=== PATIENT | female | born 1980 | race Caucasian/White ===

== ENCOUNTER 2017-08-21 15:14 | Emergency (ER) | payer SELFPAY ==
[~2017-08-21] VITALS: Ht 167.6 cm; Wt 61.4 kg
[2017-08-21 15:15] VITALS: BP 106/68; PULSE 78; RESP 18; TEMP 98.5; O2SAT 98
--- NOTE | 2017-08-27 22:25 | PD ---
HPI Chief Complaint: Cold / Flu Symptoms Time Seen by Provider: 15:33 Travel History International Travel<30 days: No Contact w/Intl Traveler<30days: No Traveled to known affect area: No History of Present Illness HPI 37-year-old female presents to the emergency department for evaluation of cough and chest congestion 1 week. Patient has also had a sinus headache and congestion. She reports pnkw-jsh-ahfohtl medications are not working. She has had no fever or chills. No chest pain. No nausea, vomiting, diarrhea. She has no other symptoms to report. [facility] Past Medical History Medical History: Denies Significant Hx Social History Alcohol Use: No Tobacco Use: No Substance Use: No Review of Systems Except as stated in HPI: all other systems reviewed are Neg Physical Exam Narrative GENERAL: Well-nourished, well-developed patient in no acute distress. SKIN: Focused skin assessment warm/dry. HEAD: Normocephalic. EYES: No scleral icterus. No injection or drainage. NECK: Trachea midline. CARDIOVASCULAR: Regular rate RESPIRATORY:No accessory muscle use. GASTROINTESTINAL: Abdomen nondistended. MUSCULOSKELETAL: No cyanosis, or edema. BACK: without obvious deformity MDM Medical Decision Making Medical Screen Exam Complete: Yes Emergency Medical Condition: Yes Medical Record Reviewed: Yes Differential Diagnosis Common cold versus influenza versus sinusitis versus pneumonia Narrative Course 37-year-old female presents to the emergency department for evaluation of cough and chest congestion. Patient appears nontoxic. Vital signs are stable. Once a bed becomes available, patient will be transferring care assumed by the provider. AMA: The risks of leaving against medical advice without further evaluation treatment were discussed with the patient. These risks include cardiac dysfunction, cardiac dysrhythmia, possible heart attack, possible stroke or . The patient indicated understanding of these risks and appeared to have the capacity to make this decision. Diagnosis Primary Impression: Upper respiratory infection Qualified Codes: J06.9 - Acute upper respiratory infection, unspecified Disposition: 07 AGAINST MEDICAL ADVICE Condition: Stable SinclairBerna garner ROSALVA Aug 27, 2017 22:25
== END 2017-08-21 18:49 | disposition left against medical advice (07) ==
LOC: NETRI 15:14
DX: J06.9 Acute upper respiratory infection, unspecified (principal); Z53.21 Procedure and treatment not carried out due to patient leaving prior to being seen by health care provider
CPT/HCPCS: 99281

== ENCOUNTER 2017-10-30 09:20 | Emergency (ER) | payer SELFPAY ==
[~2017-10-30] VITALS: Ht 167.6 cm; Wt 61.5 kg
[2017-10-30 09:21] VITALS: BP 116/57; PULSE 68; RESP 16; TEMP 98.6; O2SAT 99
[2017-10-30] MEDS ORDERED: CELE10TA PO (09:45)
[2017-10-30] MEDS ORDERED: CIPR-9 PO (09:45)
[2017-10-30] MEDS ORDERED: AUGM875T3 PO (09:59)
[2017-10-30] MEDS ORDERED: MEDR4PAK PO (09:59)
[2017-10-30] MEDS ORDERED: MAGICADU2 SWISH-SWAL (09:59)
--- NOTE | 2017-10-30 10:05 | PD ---
HPI Chief Complaint: Oral / Dental Pain or Problem Time Seen by Provider: 09:44 Travel History International Travel<30 days: No Contact w/Intl Traveler<30days: No Traveled to known affect area: No History of Present Illness HPI 37-year-old female that presents to the ED for evaluation of right-sided facial pain and swelling. Per patient about 2 weeks ago she noted that she had inflamed tonsils with exudates. She was evaluated by one of her physicians as well as physician commercial assistant in her office and they started her on amoxicillin to cover for strep throat. She was able to take the medication with no issues and she was able to get better on her own. Since yesterday she started developing same symptoms except that now she is having pain on the right neck as well as the right ear. Per patient she finished antibiotics with no issues. Per patient she is concerned she may be having the same. Per patient her doctor at her office prescribed her Cipro in hopes that this will help cover for any other bacteria. Patient has had no cultures or evaluations alert by her boss who is a hypertrichologist. Patient states the pain is 4 out of 10 and gets worse with movement. Denies any cough. No runny nose. Patient denies any other medical history. Allergy to promethazine. Has not seen her own provider. PFSH Past Medical History Deep Vein Thrombosis: Yes (LLE) ?: Not LMP: 2 WEEKS AGO Social History Alcohol Use: No Tobacco Use: Yes (BUT NONE X 3 DAYS) Substance Use: Yes (MARIJUANA) Allergies-Medications (Allergen,Severity, Reaction): Coded Allergies: promethazine (Verified Allergy, Unknown, 10/30/17) Reported Meds & Prescriptions Reported Meds & Active Scripts Active Augmentin (Amoxicillin-Clavulanate) 875-125 Mg Tab 1 Tab PO BID 10 Days Magic Mouthwash Adult Liq (Multi-Ingredient Mouthwash/Gargle) 120 Ml Susp 5 Ml SWISH-SWAL ACHS Each 5mL contains: Nystatin 200,000units, Diphenhydramine 4.25mg, Viscous Lidocaine 10mg, [place] syrup 0.8 mL Medrol Dosepak (Methylprednisolone) 4 Mg Dspk 4 Mg PO DIRECTED Per Pharmacist direction Reported Celexa (Citalopram Hydrobromide) 10 Mg Tab Unknown Dose PO DAILY Cipro (Ciprofloxacin HCl) 500 Mg Tab 500 Mg PO BID Review of Systems Except as stated in HPI: all other systems reviewed are Neg Physical Exam Narrative GENERAL: Well-nourished, well-developed patient in no apparent distress. SKIN: Warm and dry. HEAD: Atraumatic. Normocephalic. EYES: Pupils equal and round reactive to light and accommodation. No scleral icterus. No injection or drainage. ENT: No nasal bleeding or discharge. Mucous membranes pink and moist. TMs are clear with no sign of infection or perforation but the right TM does appear to be bulging somewhat.. No mastoid tenderness. Ear canals are intact bilaterally. Right cervical lymphadenopathy. Nostril mucosa is red and moist with clear mucus noted. No sinus tenderness to palpation noted. Tonsils slightly enlarged on the right side but not touching. Patient does have some white exudates noted on the left tonsil. Not erythematous however. No ulvua Deviation. Tongue is midline. NECK: Trachea midline. No JVD. No meningeal signs noted CARDIOVASCULAR: Regular rate and rhythm. RESPIRATORY: No accessory muscle use. Clear to auscultation. Breath sounds equal bilaterally. GASTROINTESTINAL: Abdomen soft, non-tender, nondistended. Hepatic and splenic margins not palpable. MUSCULOSKELETAL: Extremities without clubbing, cyanosis, or edema. No obvious deformities. NEUROLOGICAL: Awake and alert. No obvious cranial nerve deficits. Motor grossly within normal limits. Five out of 5 muscle strength in the arms and legs. Normal speech. PSYCHIATRIC: Appropriate mood and affect; insight and judgment normal. Data Data Last Documented VS Vital Signs Date Time Temp Pulse Resp B/P (MAP) Pulse Ox O2 Delivery O2 Flow Rate FiO2 10/30/17 09:21 98.6 68 16 116/57 (76) 99 Room Air Orders Orders Throat Culture (10/30/17 09:52) [facility] Medical Decision Making Medical Screen Exam Complete: Yes Emergency Medical Condition: Yes Medical Record Reviewed: Yes Differential Diagnosis Strep throat versus pharyngitis versus otitis media Narrative Course 37-year-old female that presents to the ED for evaluation of sore throat. Patient was properly examined and was found to have signs and symptoms consistent appears to be pharyngitis. Possible early otitis media. I recommend discontinuing the Cipro as per patient is making her feel worse. I do recommend adding Augmentin instead that should cover for anything that the amoxicillin did not cover. I did perform a throat culture to see what its growing on her throat to better assess what is going on with her. Her right neck pain does appear to be related to lymphadenopathy likely from infection. I discharged from the recommend that she follows up with primary care doctor. ENT. See ED worsening symptoms. OTC medicines as needed. She will be given a prescription for Medrol Dosepak as well as magic mouthwash for symptoms. Diagnosis Primary Impression: Pharyngitis, acute Qualified Codes: J02.9 - Acute pharyngitis, unspecified Additional Impression: Lymphadenitis, acute Patient Instructions: General Instructions Additional Instructions: Motrin and Tylenol for pain and fever. You can use rikc-[id number]-[id number] antihistamine as well as well as Mucinex as needed for runny nose and congestion. Drink plenty of fluids. Follow-up with PCP. See ED for worsening symptoms. Med/Other Pt SpecificInfo: Prescription(s) given Scripts Amoxicillin-Clavulanate (Augmentin) 875-125 Mg Tab 1 TAB PO BID for Infection for 10 Days, #20 TAB 0 Refills Prov: Jerardo Santoro MD 10/30/17 Zgqzyfxu-Svdfkavwukfawrg-Qafbfqpjb Liq (Magic Mouthwash Adult Liq) 120 Ml Susp 5 ML SWISH-SWAL ACHS for Mouth sores, #120 ML 0 Refills Each 5mL contains: Nystatin 200,000units, Diphenhydramine 4.25mg, Viscous Lidocaine 10mg, [place] syrup 0.8 mL Prov: Jerardo Santoro MD 10/30/17 Methylprednisolone Dosepak (Medrol Dosepak) 4 Mg Dspk 4 MG PO DIRECTED, #1 DSPK 0 Refills Per Pharmacist direction Prov: Jerardo Santoro MD 10/30/17 Disposition: 01 DISCHARGE HOME Condition: Stable Yuri Hull Oct 30, 2017 10:05
== END 2017-10-30 10:38 | disposition home or self-care (01) ==
LOC: NEPK 09:20
DX: J02.9 Acute pharyngitis, unspecified (principal); L04.9 Acute lymphadenitis, unspecified; Z86.718 Personal history of other venous thrombosis and embolism; Z72.0 Tobacco use
CPT/HCPCS: 87070; 99283

== ENCOUNTER 2017-12-27 14:13 | Emergency (ER) | payer SELFPAY ==
[~2017-12-27] VITALS: Ht 167.6 cm; Wt 60.0 kg
[~2017-12-27 14:13] MED LIST: AUGM875T3 PO; CELE10TA PO; CIPR-9 PO; MAGICADU2 SWISH-SWAL; MEDR4PAK PO
[2017-12-27 14:25] VITALS: BP 134/83; PULSE 103; RESP 18; TEMP 98.3; O2SAT 98
[2017-12-27] MEDS ORDERED: SODIUM CHLORIDE 0.9% FLUSH 10 ML FLUSH IV FLUSH PRN (16:00)
[2017-12-27] MEDS ORDERED: KETOROLAC TROMETHAMINE 30 MG/ML (IVP) VIAL IVP ONE (16:00)
[2017-12-27 16:36] LABS: AUTOMATED NEUTROPHIL # 4.8 TH/MM3 (1.8-7.7); BASOPHIL # 0.1 TH/MM3 (0-0.2); BASOPHIL % 0.8 % (0.0-2.0); EOSINOPHIL # 0.2 TH/MM3 (0-0.4); HEMATOCRIT 36.7 % (35.0-46.0); HEMOGLOBIN 12.3 GM/DL (11.6-15.3); LYMPH % 32.6 % (9.0-44.0); LYMPHOCYTE # 2.8 TH/MM3 (1.0-4.8); MEAN CELL VOLUME 90.5 FL (80.0-100.0); MEAN CORPUSCULAR HEMOGLOBIN 30.5 PG (27.0-34.0); MEAN CORPUSCULAR HGB CONC 33.7 % (32.0-36.0); MONO % 8.5 % (0.0-8.0); MONOCYTE # 0.7 TH/MM3 (0-0.9); NEUT % 56.1 % (16.0-70.0); PLATELET COUNT 247 TH/MM3 (150-450); RED BLOOD COUNT 4.05 MIL/MM3 (4.00-5.30); RED CELL DISTRIBUTION WIDTH 14.6 % (11.6-17.2); WHITE BLOOD COUNT 8.6 TH/MM3 (4.0-11.0)
[2017-12-27 16:46] LABS: BILIRUBIN, URINE NEG (NEG); BLOOD, URINE NEG (NEG); GLUCOSE,URINE NEG (NEG); KETONE, URINE NEG (NEG); MUCUS URINE FEW /lpf (OCC); NITRITE,URINE NEG (NEG); PH, URINE 6.5 (5.0-8.5); SQUAMOUS EPITHELIAL CELL URINE 12 /hpf (0-5); URINE COLOR YELLOW (YELLW/STRAW); URINE LEUKOCYTE ESTERASE NEG (NEG)
[2017-12-27 16:47] LABS: PROTHROMBIN TIME - PATIENT 10.2 SEC (9.8-11.6)
--- NOTE | 2017-12-27 17:04 | PD ---
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 Reports nausea without vomiting. Denies fevers. Denies abnormal vaginal discharge or odor, but does state she has had more discharge than normal. Is concerned of exposure to STI. Denies vaginal bleeding, dysuria. History of left ovary removal and 2 C-sections, otherwise no other abdominal surgeries. Last menstrual period 2-1/2 weeks ago. History of tubal ligation. History of ovarian cyst and believes on the right side, since she does not have a left ovary. Rates pain 7/10. Worse with movement. Better at rest. Has tried taking ibuprofen for symptom management with no relief. No primary care provider. No fabric designer. Allergies to Phenergan. History of ovarian cyst, DVT in her left leg, and depression. Denies anticoagulant therapy. Has no other medical complaints. No other modifying factors or associated signs and symptoms. PFSH Past Medical History Deep Vein Thrombosis: Yes (LLE) Medical other: Yes (OVARIAN CYSTS) ?: Not LMP: 12/05/17 Past Surgical History Surgical History: No Previous Surgery Social History Alcohol Use: No Tobacco Use: No Substance Use: Yes (MARIJUANA) Allergies-Medications (Allergen,Severity, Reaction): Coded Allergies: promethazine (Verified Allergy, Unknown, 10/30/17) Reported Meds & Prescriptions Reported Meds & Active Scripts Active Prednisone 50 Mg Tab 50 Mg PO DAILY 3 Days Ibuprofen 800 Mg Tab 800 Mg PO Q6HR PRN Augmentin (Amoxicillin-Clavulanate) 875-125 Mg Tab 1 Tab PO BID 10 Days Magic Mouthwash Adult Liq (Multi-Ingredient Mouthwash/Gargle) 120 Ml Susp 5 Ml SWISH-SWAL ACHS Each 5mL contains: Nystatin 200,000units, Diphenhydramine 4.25mg, Viscous Lidocaine 10mg, [place] syrup 0.8 mL Medrol Dosepak (Methylprednisolone) 4 Mg Dspk 4 Mg PO DIRECTED Per Pharmacist direction Reported Celexa (Citalopram Hydrobromide) 10 Mg Tab Unknown Dose PO DAILY Cipro (Ciprofloxacin HCl) 500 Mg Tab 500 Mg PO BID Review of Systems Except as stated in HPI: all other systems reviewed are Neg Physical Exam Narrative GENERAL: Well-nourished, well-developed female patient, in no acute distress; afebrile, nontoxic-appearing SKIN: Warm and dry. HEAD: Atraumatic. Normocephalic. EYES: Pupils equal and round. No scleral icterus. No injection or drainage. ENT: Mucous membranes pink and moist. NECK: Trachea midline. No lymphadenopathy. CARDIOVASCULAR: Regular rate and rhythm. No murmur appreciated. RESPIRATORY: No accessory muscle use. Clear to auscultation. Breath sounds equal bilaterally. GASTROINTESTINAL: Abdomen soft, right lower quadrant abdominal pain, nondistended. Bilateral pelvic region nontender to palpation. Hepatic and splenic margins not palpable. No guarding, rigidity, rebound tenderness. PELVIC: Exam done in the presence of a nurse. Speculum exam reveals edematous and erythematous cervix with copioius amount of creamy white, nonodorous discharge. Bimanual exam reveals no palpable masses or adnexa tenderness, no uterine tenderness. [-] cervical motion tenderness. BACK: Right CVA tenderness. MUSCULOSKELETAL: No obvious deformities. No clubbing. No cyanosis. No edema. NEUROLOGICAL: Awake and alert. No obvious cranial nerve deficits. Motor grossly within normal limits. Normal speech. PSYCHIATRIC: Appropriate mood and affect; insight and judgment normal. Data Data Last Documented VS Vital Signs Date Time Temp Pulse Resp B/P (MAP) Pulse Ox O2 Delivery O2 Flow Rate FiO2 12/27/17 19:21 72 16 119/72 (88) 98 Room Air 12/27/17 14:25 98.3 Orders Orders Complete Blood Count With Diff (12/27/17 15:58) Comprehensive Metabolic Panel (12/27/17 15:58) Lipase (12/27/17 15:58) Prothrombin Time / Inr (Pt) (12/27/17 15:58) Act Partial Throm Time (Ptt) (12/27/17 15:58) Urinalysis - C+S If Indicated (12/27/17 15:58) Iv Access Insert/Monitor (12/27/17 15:58) Sodium Chloride 0.9% Flush (Ns Flush) (12/27/17 16:00) Ketorolac Inj (Toradol Inj) (12/27/17 16:00) Ed Urine Pregnancytest Poc (12/27/17 15:58) Gc And Chlamydia Pcr (12/27/17 16:21) Wet Prep Profile (12/27/17 16:21) Ct Abd/Pel W Iv Contrast(Rout) (12/27/17 ) Sodium Chlor 0.9% 1000 Ml Inj (Ns 1000 M (12/27/17 17:15) Morphine Inj (Morphine Inj) (12/27/17 19:15) Ondansetron Inj (Zofran Inj) (12/27/17 19:15) Methylprednisolone So Succ Inj (Solumedr (12/27/17 19:30) Diphenhydramine Inj (Benadryl Inj) (12/27/17 19:30) Iohexol 350 Inj (Omnipaque 350 Inj) (12/27/17 19:33) Beta Hcg (Quant/Titer) (12/27/17 19:54) Ed Discharge Order (12/27/17 21:05) Labs Laboratory Tests Test 12/27/17 16:06 12/27/17 17:14 White Blood Count 8.6 TH/MM3 Red Blood Count 4.05 MIL/MM3 Hemoglobin 12.3 GM/DL Hematocrit 36.7 % Mean Corpuscular Volume 90.5 FL Mean Corpuscular Hemoglobin 30.5 PG Mean Corpuscular Hemoglobin Concent 33.7 % Red Cell Distribution Width 14.6 % Platelet Count 247 TH/MM3 Mean Platelet Volume 9.0 FL Neutrophils (%) (Auto) 56.1 % Lymphocytes (%) (Auto) 32.6 % Monocytes (%) (Auto) 8.5 % Eosinophils (%) (Auto) 2.0 % Basophils (%) (Auto) 0.8 % Neutrophils # (Auto) 4.8 TH/MM3 Lymphocytes # (Auto) 2.8 TH/MM3 Monocytes # (Auto) 0.7 TH/MM3 Eosinophils # (Auto) 0.2 TH/MM3 Basophils # (Auto) 0.1 TH/MM3 CBC Comment DIFF FINAL Differential Comment Prothrombin Time 10.2 SEC Prothromb Time International Ratio 1.0 RATIO Activated Partial Thromboplast Time 31.0 SEC Urine Color YELLOW Urine Turbidity HAZY Urine pH 6.5 Urine Specific [place] 1.037 Urine Protein 30 mg/dL Urine Glucose (UA) NEG mg/dL Urine Ketones NEG mg/dL Urine Occult Blood NEG Urine Nitrite NEG Urine Bilirubin NEG Urine Urobilinogen LESS THAN 2.0 MG/DL Urine Leukocyte Esterase NEG Urine WBC 3 /hpf Urine Squamous Epithelial Cells 12 /hpf Urine Mucus FEW /lpf Microscopic Urinalysis Comment CULT NOT INDICATED Blood Urea Nitrogen 9 MG/DL Creatinine 0.66 MG/DL Random Glucose 79 MG/DL Total Protein 7.2 GM/DL Albumin 3.7 GM/DL Calcium Level 8.7 MG/DL Alkaline Phosphatase 39 U/L Aspartate Amino Transf (AST/SGOT) 11 U/L Alanine Aminotransferase (ALT/SGPT) 17 U/L Total Bilirubin 0.1 MG/DL Sodium Level 140 MEQ/L Potassium Level 3.8 MEQ/L Chloride Level 105 MEQ/L Carbon Dioxide Level 27.6 MEQ/L Anion Gap 7 MEQ/L Estimat Glomerular Filtration Rate 101 ML/MIN Lipase 177 U/L Human Chorionic Gonadotropin, Quant LESS THAN 1 MIU/ML Clue Cells (Wet Prep) NONE SEEN Vaginal Trichomonas (Wet Prep) NONE SEEN Vaginal Yeast (Wet Prep) NONE SEEN Chlamydia trachomatis DNA (PCR) NOT DETECTED Neisseria gonorrhoeae DNA (PCR) NOT DETECTED MDM Medical Decision Making Medical Screen Exam Complete: Yes Emergency Medical Condition: Yes Medical Record Reviewed: Yes Differential Diagnosis Appendicitis, PID, chlamydia, gonorrhea, trichomonas Narrative Course 37-year-old female with right lower quadrant abdominal pain and concern of exposure to STI. Reports more vaginal discharge than normal, but denies abnormal color or smell. Dr. schneider evaluated the patient and agrees with my plan of care. CBC, CMP, lipase, urinalysis, UPT, wet prep, chlamydia, gonorrhea , CT abdomen/pelvis ordered. IV, Toradol, normal saline bolus ordered. 1728: CBC, CMP, lipase, urinalysis unremarkable. 1899: Clue cells, vaginal yeast, trichomonas negative. Chlamydia and gonorrhea pending. 1899: Report given to ROSALVA Golden at change of shift. See her note for final patient disposition. Scripts Prednisone (Prednisone) 50 Mg Tab 50 MG PO DAILY for 3 Days, #3 TAB 0 Refills Prov: Dorys Marcelino 12/27/17 Ibuprofen (Ibuprofen) 800 Mg Tab 800 MG PO Q6HR Y for PAIN, #40 TAB 0 Refills Prov: Dorys Marcelino 12/27/17 Romi Camacho Dec 27, 2017 17:04
[2017-12-27 17:05] LABS: ALBUMIN 3.7 GM/DL (3.4-5.0); AST (GOT) 11 U/L (15-37); BICARBONATE 27.6 MEQ/L (21.0-32.0); BLOOD UREA NITROGEN 9 MG/DL (7-18); CALCIUM 8.7 MG/DL (8.5-10.1); CHLORIDE 105 MEQ/L (98-107); CREATININE 0.66 MG/DL (0.50-1.00); GLOMERULAR FILTRATION RATE 101 ML/MIN (>89); GLUCOSE,RANDOM 79 MG/DL (74-106); SODIUM (NA) 140 MEQ/L (136-145)
[2017-12-27 17:14] LABS: ALKALINE PHOSPHATASE 39 U/L (45-117); ALT (GPT) 17 U/L (10-53); TOTAL BILIRUBIN ADULT 0.1 MG/DL (0.2-1.0); TOTAL PROTEIN 7.2 GM/DL (6.4-8.2)
[2017-12-27] MEDS ORDERED: SODIUM CHLOR 0.9% 1000 ML INJ 1,000 ML IV ONE (17:15)
--- NOTE | 2017-12-27 17:22 | PD ---
Data Data Last Documented VS Vital Signs Date Time Temp Pulse Resp B/P (MAP) Pulse Ox O2 Delivery O2 Flow Rate FiO2 12/27/17 14:25 98.3 103 18 134/83 (100) 98 Orders Orders Complete Blood Count With Diff (12/27/17 15:58) Comprehensive Metabolic Panel (12/27/17 15:58) Lipase (12/27/17 15:58) Prothrombin Time / Inr (Pt) (12/27/17 15:58) Act Partial Throm Time (Ptt) (12/27/17 15:58) Urinalysis - C+S If Indicated (12/27/17 15:58) Iv Access Insert/Monitor (12/27/17 15:58) Sodium Chloride 0.9% Flush (Ns Flush) (12/27/17 16:00) Ketorolac Inj (Toradol Inj) (12/27/17 16:00) Ed Urine Pregnancytest Poc (12/27/17 15:58) Gc And Chlamydia Pcr (12/27/17 16:21) Wet Prep Profile (12/27/17 16:21) Ct Abd/Pel W Iv Contrast(Rout) (12/27/17 ) Sodium Chlor 0.9% 1000 Ml Inj (Ns 1000 M (12/27/17 17:15) Labs Laboratory Tests Test 12/27/17 16:06 White Blood Count 8.6 TH/MM3 Red Blood Count 4.05 MIL/MM3 Hemoglobin 12.3 GM/DL Hematocrit 36.7 % Mean Corpuscular Volume 90.5 FL Mean Corpuscular Hemoglobin 30.5 PG Mean Corpuscular Hemoglobin Concent 33.7 % Red Cell Distribution Width 14.6 % Platelet Count 247 TH/MM3 Mean Platelet Volume 9.0 FL Neutrophils (%) (Auto) 56.1 % Lymphocytes (%) (Auto) 32.6 % Monocytes (%) (Auto) 8.5 % Eosinophils (%) (Auto) 2.0 % Basophils (%) (Auto) 0.8 % Neutrophils # (Auto) 4.8 TH/MM3 Lymphocytes # (Auto) 2.8 TH/MM3 Monocytes # (Auto) 0.7 TH/MM3 Eosinophils # (Auto) 0.2 TH/MM3 Basophils # (Auto) 0.1 TH/MM3 CBC Comment DIFF FINAL Differential Comment Prothrombin Time 10.2 SEC Prothromb Time International Ratio 1.0 RATIO Activated Partial Thromboplast Time 31.0 SEC Urine Color YELLOW Urine Turbidity HAZY Urine pH 6.5 Urine Specific [place] 1.037 Urine Protein 30 mg/dL Urine Glucose (UA) NEG mg/dL Urine Ketones NEG mg/dL Urine Occult Blood NEG Urine Nitrite NEG Urine Bilirubin NEG Urine Urobilinogen LESS THAN 2.0 MG/DL Urine Leukocyte Esterase NEG Urine WBC 3 /hpf Urine Squamous Epithelial Cells 12 /hpf Urine Mucus FEW /lpf Microscopic Urinalysis Comment CULT NOT INDICATED Blood Urea Nitrogen 9 MG/DL Creatinine 0.66 MG/DL Random Glucose 79 MG/DL Total Protein 7.2 GM/DL Albumin 3.7 GM/DL Calcium Level 8.7 MG/DL Alkaline Phosphatase 39 U/L Aspartate Amino Transf (AST/SGOT) 11 U/L Alanine Aminotransferase (ALT/SGPT) 17 U/L Total Bilirubin 0.1 MG/DL Sodium Level 140 MEQ/L Potassium Level 3.8 MEQ/L Chloride Level 105 MEQ/L Carbon Dioxide Level 27.6 MEQ/L Anion Gap 7 MEQ/L Estimat Glomerular Filtration Rate 101 ML/MIN Lipase 177 U/L MDM Supervised Visit with JOHNNIE: Yes Narrative Course The history, exam, and medical decision-making in the associated mid-level provider note were completed with my assistance. I reviewed and agree with the findings presented. I attest that I had a [id number] encounter with the patient on the same day, and personally performed and documented my assessment and findings in the medical record. *My assessment and Findings: 37-year-old woman, right lower quadrant abdominal pain, starting yesterday. Some tenderness on exam. Looks well. Symptoms are somewhat consistent with appendicitis. She had vague diffuse abdominal pain, and migrating to the right lower quadrant over 24 hours. Also has a good appetite. I think this is less likely to be appendicitis. She had some cervical motion tenderness. She sexually active one male partner only. This point recommend CT, if negative for appendicitis would treat PID. Jonny Allen MD Dec 27, 2017 17:22
[2017-12-27] MEDS ORDERED: ONDANSETRON HCL 4 MG/2 ML VIAL IV PUSH ONE (19:15)
[2017-12-27] MEDS ORDERED: MORPHINE SULFATE 4 MG/ML INJ IV PUSH ONE (19:15)
[2017-12-27 19:21] VITALS: BP 119/72; PULSE 72; RESP 16; O2SAT 98
[2017-12-27] MEDS ORDERED: diphenhydrAMINE HCL 50 MG/ML VIAL IV PUSH ONE (19:30)
[2017-12-27] MEDS ORDERED: methylPREDNISolone SOD SUCC 125 MG/2 ML VIAL IV PUSH ONE (19:30)
[2017-12-27] MEDS ORDERED: IOHEXOL 350 MG/ML 10 ML VIAL (for RAD DIAG) IVCONTRAST ONE (19:33)
--- NOTE | 2017-12-27 19:45 | PD ---
Physical Exam Date Seen by Provider: Dec 27, 2017 Time Seen by Provider: 19:43 Narrative For full history and physical examination please see previous providers note. I assumed care of this patient change of shift. Data Data Last Documented VS Vital Signs Date Time Temp Pulse Resp B/P (MAP) Pulse Ox O2 Delivery O2 Flow Rate FiO2 12/27/17 19:21 72 16 119/72 (88) 98 Room Air 12/27/17 14:25 98.3 Orders Orders Complete Blood Count With Diff (12/27/17 15:58) Comprehensive Metabolic Panel (12/27/17 15:58) Lipase (12/27/17 15:58) Prothrombin Time / Inr (Pt) (12/27/17 15:58) Act Partial Throm Time (Ptt) (12/27/17 15:58) Urinalysis - C+S If Indicated (12/27/17 15:58) Iv Access Insert/Monitor (12/27/17 15:58) Sodium Chloride 0.9% Flush (Ns Flush) (12/27/17 16:00) Ketorolac Inj (Toradol Inj) (12/27/17 16:00) Ed Urine Pregnancytest Poc (12/27/17 15:58) Gc And Chlamydia Pcr (12/27/17 16:21) Wet Prep Profile (12/27/17 16:21) Ct Abd/Pel W Iv Contrast(Rout) (12/27/17 ) Sodium Chlor 0.9% 1000 Ml Inj (Ns 1000 M (12/27/17 17:15) Morphine Inj (Morphine Inj) (12/27/17 19:15) Ondansetron Inj (Zofran Inj) (12/27/17 19:15) Methylprednisolone So Succ Inj (Solumedr (12/27/17 19:30) Diphenhydramine Inj (Benadryl Inj) (12/27/17 19:30) Iohexol 350 Inj (Omnipaque 350 Inj) (12/27/17 19:33) Beta Hcg (Quant/Titer) (12/27/17 19:54) Ed Discharge Order (12/27/17 21:05) Labs Laboratory Tests Test 12/27/17 16:06 12/27/17 17:14 White Blood Count 8.6 TH/MM3 Red Blood Count 4.05 MIL/MM3 Hemoglobin 12.3 GM/DL Hematocrit 36.7 % Mean Corpuscular Volume 90.5 FL Mean Corpuscular Hemoglobin 30.5 PG Mean Corpuscular Hemoglobin Concent 33.7 % Red Cell Distribution Width 14.6 % Platelet Count 247 TH/MM3 Mean Platelet Volume 9.0 FL Neutrophils (%) (Auto) 56.1 % Lymphocytes (%) (Auto) 32.6 % Monocytes (%) (Auto) 8.5 % Eosinophils (%) (Auto) 2.0 % Basophils (%) (Auto) 0.8 % Neutrophils # (Auto) 4.8 TH/MM3 Lymphocytes # (Auto) 2.8 TH/MM3 Monocytes # (Auto) 0.7 TH/MM3 Eosinophils # (Auto) 0.2 TH/MM3 Basophils # (Auto) 0.1 TH/MM3 CBC Comment DIFF FINAL Differential Comment Prothrombin Time 10.2 SEC Prothromb Time International Ratio 1.0 RATIO Activated Partial Thromboplast Time 31.0 SEC Urine Color YELLOW Urine Turbidity HAZY Urine pH 6.5 Urine Specific Lapel 1.037 Urine Protein 30 mg/dL Urine Glucose (UA) NEG mg/dL Urine Ketones NEG mg/dL Urine Occult Blood NEG Urine Nitrite NEG Urine Bilirubin NEG Urine Urobilinogen LESS THAN 2.0 MG/DL Urine Leukocyte Esterase NEG Urine WBC 3 /hpf Urine Squamous Epithelial Cells 12 /hpf Urine Mucus FEW /lpf Microscopic Urinalysis Comment CULT NOT INDICATED Blood Urea Nitrogen 9 MG/DL Creatinine 0.66 MG/DL Random Glucose 79 MG/DL Total Protein 7.2 GM/DL Albumin 3.7 GM/DL Calcium Level 8.7 MG/DL Alkaline Phosphatase 39 U/L Aspartate Amino Transf (AST/SGOT) 11 U/L Alanine Aminotransferase (ALT/SGPT) 17 U/L Total Bilirubin 0.1 MG/DL Sodium Level 140 MEQ/L Potassium Level 3.8 MEQ/L Chloride Level 105 MEQ/L Carbon Dioxide Level 27.6 MEQ/L Anion Gap 7 MEQ/L Estimat Glomerular Filtration Rate 101 ML/MIN Lipase 177 U/L Human Chorionic Gonadotropin, Quant LESS THAN 1 MIU/ML Clue Cells (Wet Prep) NONE SEEN Vaginal Trichomonas (Wet Prep) NONE SEEN Vaginal Yeast (Wet Prep) NONE SEEN Chlamydia trachomatis DNA (PCR) NOT DETECTED Neisseria gonorrhoeae DNA (PCR) NOT DETECTED [facility] Medical Record Reviewed: Yes Supervised Visit with JOHNNIE: Yes Interpretation(s) Last Impressions Abdomen/Pelvis CT 12/27/17 0000 Signed Impressions: Service Date/Time: Wednesday, December 27, 2017 19:21 - CONCLUSION: 1. I believe the appendix is normal. 2. Palpable small right adnexal cyst with prominent tube. No free fluid. Sim Singer MD FACR Laboratory Tests Test 12/27/17 16:06 12/27/17 17:14 White Blood Count 8.6 TH/MM3 Red Blood Count 4.05 MIL/MM3 Hemoglobin 12.3 GM/DL Hematocrit 36.7 % Mean Corpuscular Volume 90.5 FL Mean Corpuscular Hemoglobin 30.5 PG Mean Corpuscular Hemoglobin Concent 33.7 % Red Cell Distribution Width 14.6 % Platelet Count 247 TH/MM3 Mean Platelet Volume 9.0 FL Neutrophils (%) (Auto) 56.1 % Lymphocytes (%) (Auto) 32.6 % Monocytes (%) (Auto) 8.5 % Eosinophils (%) (Auto) 2.0 % Basophils (%) (Auto) 0.8 % Neutrophils # (Auto) 4.8 TH/MM3 Lymphocytes # (Auto) 2.8 TH/MM3 Monocytes # (Auto) 0.7 TH/MM3 Eosinophils # (Auto) 0.2 TH/MM3 Basophils # (Auto) 0.1 TH/MM3 CBC Comment DIFF FINAL Differential Comment Prothrombin Time 10.2 SEC Prothromb Time International Ratio 1.0 RATIO Activated Partial Thromboplast Time 31.0 SEC Urine Color YELLOW Urine Turbidity HAZY Urine pH 6.5 Urine Specific Lapel 1.037 Urine Protein 30 mg/dL Urine Glucose (UA) NEG mg/dL Urine Ketones NEG mg/dL Urine Occult Blood NEG Urine Nitrite NEG Urine Bilirubin NEG Urine Urobilinogen LESS THAN 2.0 MG/DL Urine Leukocyte Esterase NEG Urine WBC 3 /hpf Urine Squamous Epithelial Cells 12 /hpf Urine Mucus FEW /lpf Microscopic Urinalysis Comment CULT NOT INDICATED Blood Urea Nitrogen 9 MG/DL Creatinine 0.66 MG/DL Random Glucose 79 MG/DL Total Protein 7.2 GM/DL Albumin 3.7 GM/DL Calcium Level 8.7 MG/DL Alkaline Phosphatase 39 U/L Aspartate Amino Transf (AST/SGOT) 11 U/L Alanine Aminotransferase (ALT/SGPT) 17 U/L Total Bilirubin 0.1 MG/DL Sodium Level 140 MEQ/L Potassium Level 3.8 MEQ/L Chloride Level 105 MEQ/L Carbon Dioxide Level 27.6 MEQ/L Anion Gap 7 MEQ/L Estimat Glomerular Filtration Rate 101 ML/MIN Lipase 177 U/L Clue Cells (Wet Prep) NONE SEEN Vaginal Trichomonas (Wet Prep) NONE SEEN Vaginal Yeast (Wet Prep) NONE SEEN Chlamydia trachomatis DNA (PCR) NOT DETECTED Neisseria gonorrhoeae DNA (PCR) NOT DETECTED Vital Signs Date Time Temp Pulse Resp B/P (MAP) Pulse Ox O2 Delivery O2 Flow Rate FiO2 12/27/17 19:21 72 16 119/72 (88) 98 Room Air 12/27/17 14:25 98.3 103 18 134/83 (100) 98 Narrative Course For full H&P please see previous providers note. Patient returned from CT scan complaining of itching. Patient was given Solu-Medrol and Benadryl. She did receive IV contrast however she also received morphine. She has never had a reaction to either and denies any history of iodine allergy or shellfish allergy. Patient was assessed, she is resting comfortably vital signs are stable and her airways patent. CT scan of the abdomen and pelvis is pending. Labs reviewed with no acute findings identified. Plan was to treat empirically for pelvic inflammatory disease, GC and Chlamydia are both negative as is her wet prep. CT scans shows a right adnexal cyst with a prominent fallopian tube. An hCG level was obtained and is less than 0. Patient will be discharged home , she is encouraged to follow-up with RESIDENT SERVICES COORDINATOR for further evaluation. Additionally patient can return to emergency department for any new or worsening symptoms. Findings were discussed with my attending physician. Patient is stable for discharge. 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
--- NOTE | 2017-12-27 19:54 | RADRPT ---
EXAM DATE/TIME: 12/27/2017 19:21 [facility] COMPARISON: No previous studies available for comparison. INDICATIONS : Right lower quadrant abdomen pain. IV CONTRAST: 100 cc Omnipaque 350 (iohexol) IV ORAL CONTRAST: No oral contrast ingested. RADIATION DOSE: 5.96 CTDIvol (mGy) MEDICAL HISTORY : Deep venous thrombosis. SURGICAL HISTORY : None. ENCOUNTER: Initial ACUITY: 1 day PAIN SCALE: 7/10 LOCATION: Right lower quadrant abdomen Patient experienced a contrast reaction consisting of itching . TECHNIQUE: Volumetric scanning of the abdomen and pelvis was performed. Using automated exposure control and ad justment of the mA and/or kV according to patient size, radiation dose was kept as low as reasonably achievable to obtain optimal diagnostic quality images. DICOM format image data is available electro nically for review and comparison. FINDINGS: The lower lungs are clear. The liver and gallbladder are unremarkable Spleen, pancreas and adrenal glands are normal Symmetrical renal function without stone or mass There is no adenopathy or ascites There are no inflammatory changes evident. Cecum is deep in the pelvis. There is a small cystic mass in the right adnexal region that appears be associated with pain dilated tube. I think there is in normal appendix seen on series 2 image 53. There is no free fluid in the pelvis CONCLUSION: 1. I believe the appendix is normal. 2. Palpable small right adnexal cyst with prominent tube. No free fluid. Sim Singer MD FACR on December 27, 2017 at 19:47 Board Certified Radiologist. This report was verified electronically.
[2017-12-27] MEDS ORDERED: IBUP1TAB7 PO (21:05)
[2017-12-27] MEDS ORDERED: PRED50 PO ×2 (21:10→21:11)
== END 2017-12-27 21:38 | disposition home or self-care (01) ==
LOC: NEPD 14:13
DX: N83.201 Unspecified ovarian cyst, right side (principal); Z86.718 Personal history of other venous thrombosis and embolism; Z88.8 Allergy status to other drugs, medicaments and biological substances; Z79.899 Other long term (current) drug therapy
CPT/HCPCS: 74177; 80053; 81001; 83690; 84702; 84703; 85025; 85610; 85730; 87210; 87491; 87591; 96361; 96374; 96375; 99284; J1200; J1885; J2270; J2405; J2930; J7030; Q9967

== ENCOUNTER 2018-01-10 21:00 | Emergency (ER) | payer SELFPAY ==
[~2018-01-10] VITALS: Ht 167.6 cm; Wt 60.0 kg
[~2018-01-10 21:00] MED LIST changes: +IBUP1TAB7 PO; +PRED50 PO
[2018-01-10 21:31] VITALS: BP 114/57; PULSE 91; RESP 16; TEMP 98.4; O2SAT 99
[2018-01-10] MEDS ORDERED: SODIUM CHLOR 0.9% 1000 ML INJ 1,000 ML IV ONE (22:30)
[2018-01-10] MEDS ORDERED: KETOROLAC TROMETHAMINE 30 MG/ML (IVP) VIAL IV PUSH ONE (22:30)
[2018-01-10] MEDS ORDERED: ONDANSETRON HCL 4 MG/2 ML VIAL IV PUSH ONE (22:30)
[2018-01-10] MEDS ORDERED: MORPHINE SULFATE 4 MG/ML INJ IV PUSH ONE (22:30)
--- NOTE | 2018-01-10 22:30 | PD ---
HPI Chief Complaint: Abdominal Pain Time Seen by Provider: 22:16 Travel History International Travel<30 days: No Contact w/Intl Traveler<30days: No Traveled to known affect area: No History of Present Illness HPI 37-year-old white female presents emergency department with complaints of a possible ruptured ovarian cyst. She states that approximately 2 hours prior to arrival she had a sudden severe onset of pain in her right lower quadrant/groin which she reports was the area she was diagnosed with a ovarian cyst a few weeks ago. She was in her normal state of health earlier today. She was eating and drinking normally. She has had no urinary or stooling problems. She states the pain came on suddenly. It is moderate in intensity. Sharp in quality. She has some improvement of her pain laying down in a type position. Worse with movement and palpation. No fever chills. No nausea vomiting. No dysuria, frequency, hematuria. No change in bowels. PFSH Past Medical History Narrative Medical DVT, ovarian cysts Deep Vein Thrombosis: Yes (LLE) Tetanus Vaccination: < 5 Years ?: Not LMP: 1 week ago Past Surgical History Surgical History: No Previous Surgery Social History Alcohol Use: No Tobacco Use: No Substance Use: Yes (MARIJUANA) Allergies-Medications (Allergen,Severity, Reaction): Coded Allergies: Iodinated Contrast- Oral and IV Dye (Verified Allergy, Unknown, 01/10/18) promethazine (Verified Allergy, Unknown, 01/10/18) Reported Meds & Prescriptions Reported Meds & Active Scripts Active Prednisone 50 Mg Tab 50 Mg PO DAILY 3 Days Ibuprofen 800 Mg Tab 800 Mg PO Q6HR PRN Augmentin (Amoxicillin-Clavulanate) 875-125 Mg Tab 1 Tab PO BID 10 Days Magic Mouthwash Adult Liq (Multi-Ingredient Mouthwash/Gargle) 120 Ml Susp 5 Ml SWISH-SWAL ACHS Each 5mL contains: Nystatin 200,000units, Diphenhydramine 4.25mg, Viscous Lidocaine 10mg, [place] syrup 0.8 mL Medrol Dosepak (Methylprednisolone) 4 Mg Dspk 4 Mg PO DIRECTED Per Pharmacist direction Reported Celexa (Citalopram Hydrobromide) 10 Mg Tab Unknown Dose PO DAILY Cipro (Ciprofloxacin HCl) 500 Mg Tab 500 Mg PO BID Review of Systems General / Constitutional: No: Fever Eyes: No: Visual changes HENT: No: Headaches Cardiovascular: No: Chest Pain or Discomfort Respiratory: No: Shortness of Breath Gastrointestinal: Positive: Abdominal Pain, No: Nausea, Vomiting, Loss of Appetite Genitourinary: No: Urgency, Frequency, Dysuria, Nocturia, Hematuria, Discharge , Vaginal Bleeding Musculoskeletal: No: Pain Skin: No Rash Neurologic: No: Weakness Psychiatric: No: Depression Endocrine: No: Polydipsia Hematologic/Lymphatic: No: Easy Bruising Physical Exam Narrative GENERAL: Well-developed, well-nourished in no acute distress. Nontoxic appearing. Patient appears uncomfortable but not toxic. HEAD: Normocephalic, atraumatic. EYES: Pupils equal round and reactive. Extraocular motions intact. No scleral icterus. No injection or drainage. ENT: TMs clear without erythema. The external auditory canals clear. Nose: clear . Posterior pharynx is pink and moist. No tonsillar edema or exudate. Uvula midline. Airway patent. NECK: Trachea midline.Supple, nontender, moves head freely. No central bony tenderness or spasm. CARDIOVASCULAR: Regular rate and rhythm without murmurs, gallops, or rubs. RESPIRATORY: Clear to auscultation. Breath sounds equal bilaterally. No wheezes , rales, or rhonchi. GASTROINTESTINAL: Abdomen soft, tenderness in the right lower quadrant with mild guarding. No rebound., nondistended. No hepato-splenomegaly, or palpable masses. EXTREMITIES: No clubbing, cyanosis, or edema. No joint tenderness, effusion, or edema noted. BACK: Nontender without deformity or crepitance. No flank tenderness. Patient appears uncomfortable but not toxic. Data Data Last Documented VS Vital Signs Date Time Temp Pulse Resp B/P (MAP) Pulse Ox O2 Delivery O2 Flow Rate FiO2 01/10/18 21:31 98.4 91 16 114/57 (76) 99 Orders Orders Complete Blood Count With Diff (01/10/18 22:24) Basic Metabolic Panel (Bmp) (01/10/18 22:24) Urinalysis - C+S If Indicated (01/10/18 22:24) Iv Access Insert/Monitor (01/10/18 22:24) Ed Urine Pregnancytest Poc (01/10/18 22:24) Sodium Chlor 0.9% 1000 Ml Inj (Ns 1000 M (01/10/18 22:30) Ketorolac Inj (Toradol Inj) (01/10/18 22:30) Ondansetron Inj (Zofran Inj) (01/10/18 22:30) Morphine Inj (Morphine Inj) (01/10/18 22:30) MDM Medical Decision Making Medical Screen Exam Complete: Yes Emergency Medical Condition: Yes Medical Record Reviewed: Yes Differential Diagnosis Differential diagnosis: Ruptured ovarian cyst, ovarian torsion, appendicitis, vaginitis Narrative Course IV access is obtained. Patient is given a liter bolus of normal saline, Zofran 4 mg IV, Toradol 50 mg IV, and morphine 4 mg IV. Mike Ascencio Jan 10, 2018 22:30
[2018-01-10] MEDS ORDERED: CELE40TA PO (22:44)
[2018-01-10 23:21] LABS: BASOPHIL # 0.1 TH/MM3 (0-0.2); BASOPHIL % 0.9 % (0.0-2.0); EOSINOPHIL # 0.2 TH/MM3 (0-0.4); EOSINOPHIL % 1.7 % (0.0-4.0); HEMATOCRIT 38.8 % (35.0-46.0); HEMOGLOBIN 13.1 GM/DL (11.6-15.3); MEAN CELL VOLUME 90.4 FL (80.0-100.0); MEAN CORPUSCULAR HEMOGLOBIN 30.6 PG (27.0-34.0); MEAN CORPUSCULAR HGB CONC 33.8 % (32.0-36.0); MEAN PLATELET VOLUME 9.4 FL (7.0-11.0); MONO % 6.2 % (0.0-8.0); MONOCYTE # 0.8 TH/MM3 (0-0.9); NEUT % 68.2 % (16.0-70.0); PLATELET COUNT 274 TH/MM3 (150-450); RED BLOOD COUNT 4.29 MIL/MM3 (4.00-5.30); WHITE BLOOD COUNT 13.2 TH/MM3 (4.0-11.0)
[2018-01-10 23:51] LABS: BICARBONATE 29.9 MEQ/L (21.0-32.0); CALCIUM 8.7 MG/DL (8.5-10.1); CREATININE 0.76 MG/DL (0.50-1.00)
[2018-01-10 23:58] LABS: BILIRUBIN, URINE NEG (NEG); BLOOD, URINE NEG (NEG); GLUCOSE,URINE NEG (NEG); KETONE, URINE NEG (NEG); MUCUS URINE MANY /lpf (OCC); NITRITE,URINE NEG (NEG); SQUAMOUS EPITHELIAL CELL URINE 2 /hpf (0-5); URINE COLOR YELLOW (YELLW/STRAW); URINE LEUKOCYTE ESTERASE NEG (NEG)
[2018-01-11 00:55] VITALS: BP_SYST 109; BP_SYST 112; BP_SYST 94; BP_DIAS 54; BP_DIAS 61; BP_DIAS 67; RESP 16; RESP 18
[2018-01-11] MEDS ORDERED: MORPHINE SULFATE 4 MG/ML INJ IV PUSH ONE (01:00)
[2018-01-11 01:45] VITALS: RESP 14
[2018-01-11] MEDS ORDERED: diphenhydrAMINE HCL 50 MG/ML VIAL IV PUSH ONE (01:45)
[2018-01-11] MEDS ORDERED: METOCLOPRAMIDE HCL 10 MG/2 ML VIAL IV PUSH ONE (01:45)
--- NOTE | 2018-01-11 02:31 | RADRPT ---
EXAM DATE/TIME: 01/11/2018 01:51 [facility] COMPARISON: No previous studies available for comparison. INDICATIONS : Pelvic pain. MEDICAL HISTORY : DVT LLE. Ovarian cyst. SURGICAL HISTORY : Left ovary removed. ENCOUNTER: Initial ACUITY: 2 days PAIN SCORE: 6/10 LOCATION: Bilateral pelvis MEASUREMENTS: UTERUS: 8.0 x 5.5 x 4.3 cm ENDOMETRIAL STRIPE: 4 mm RIGHT OVARY: 3.8 x 4.0 x 2.2 cm LEFT OVARY: n/a cm Surgically absent FINDINGS: UTERUS: The myometrium has homogeneous echotexture without mass. RIGHT OVARY: Normal in size and shape. A few tiny simple cysts. Normal blood flow. LEFT OVARY: Surgically absent. MISCELLANEOUS: No free fluid. CONCLUSION: Surgically absent left ovary. Otherwise, unremarkable exam. David Ritchie Jr., MD on January 11, 2018 at 2:28 Board Certified Radiologist. This report was verified electronically.
[2018-01-11] MEDS ORDERED: NORC5TAB PO (04:53)
[2018-01-11] MEDS ORDERED: ZOFR4TAB3 SL (04:53)
== END 2018-01-11 05:49 | disposition home or self-care (01) ==
LOC: NEPD 21:00
DX: R10.2 Pelvic and perineal pain (principal); F12.90 Cannabis use, unspecified, uncomplicated
CPT/HCPCS: 76856; 80048; 81001; 84703; 85025; 96361; 96374; 96375; 99284; J1200; J1885; J2270; J2405; J2765; J7030

== ENCOUNTER 2018-03-18 17:19 | Emergency (ER) | payer MEDICAID ==
[~2018-03-18] VITALS: Ht 167.6 cm; Wt 61.5 kg
[~2018-03-18 17:19] MED LIST changes: -AUGM875T3 PO; -CELE10TA PO; +CELE40TA PO; -CIPR-9 PO; -IBUP1TAB7 PO; -MAGICADU2 SWISH-SWAL; -MEDR4PAK PO; +NORC5TAB PO; -PRED50 PO; +ZOFR4TAB3 SL
[2018-03-18 17:26] VITALS: BP 98/50; PULSE 78; RESP 16; TEMP 98.4; O2SAT 98
--- NOTE | 2018-03-18 20:29 | PD ---
HPI Chief Complaint: Pain: Acute or Chronic Time Seen by Provider: 20:20 Travel History International Travel<30 days: No Contact w/Intl Traveler<30days: No Traveled to known affect area: No History of Present Illness HPI The patient is a 37-year-old female who presents to the emergency department for left lower extremity swelling and pain. The patient has a history of DVT greater than 10 years ago, she was on control at that time and smoking cigarettes. The patient was treated with warfarin at that time for 6 months and has had no other blood clots. The patient is a with one and one miscarriage with no known history of clotting disorders. She denied any hospitalizations, surgeries, or prolonged travel in the 3 months prior to her DVT, however, did have surgery on the abdomen one year prior to the DVT. The patient denies any recent trauma to left lower extremity. She does complain of pain over the left posterior calf that radiates down the left ankle is very similar to her previous DVT. She also notes mild swelling compared to the right, but denies any erythema. Symptoms are moderate. PFSH Past Medical History Depression: Yes Diabetes: No Diminished Hearing: No Deep Vein Thrombosis: Yes (LLE) Reproductive: Yes (OVARIAN CYST) Immunizations Current: Yes LMP: March 15, 2018 : 4 Para: 2 Miscarriage: 1 : 1 Ovarian Cysts: Yes (MULTIPLE) Dilation and Curettage (D&C): Yes Tubal Ligation: Yes Past Surgical History Section: Yes (X2) Gynecologic Surgery: Yes (LEFT OVARY REMOVAL) Social History Alcohol Use: Yes (occasional) Tobacco Use: Yes (1/2/PPD) Substance Use: Yes (MARIJUANA) Allergies-Medications (Allergen,Severity, Reaction): Coded Allergies: Iodinated Contrast- Oral and IV Dye (Verified Allergy, Unknown, 03/18/18) promethazine (Verified Allergy, Unknown, 03/18/18) Reported Meds & Prescriptions Reported Meds & Active Scripts Active Zofran Odt (Ondansetron Odt) 4 Mg Tab 4 Mg SL Q6HR PRN Pony (Hydrocodone-Acetaminophen) 5 Mg-325 Mg Tab 1 Tab PO Q4H PRN Reported Celexa (Citalopram Hydrobromide) 40 Mg Tab 40 Mg PO DAILY Review of Systems Except as stated in HPI: all other systems reviewed are Neg Cardiovascular: No: Chest Pain or Discomfort Respiratory: No: Shortness of Breath Musculoskeletal: Positive: Edema, Pain Skin: No Rash, No Itching Neurologic: No: Paresthesia, Sensory Disturbance Physical Exam Narrative GENERAL: Awake, alert, pleasant 37-year-old female who appears her stated age and is in no acute respiratory distress. SKIN: Focused skin assessment warm/dry. HEAD: Atraumatic. Normocephalic. EYES: No injection or drainage. ENT: No nasal bleeding or discharge. Mucous membranes pink and moist. NECK: Trachea midline. No JVD. MUSCULOSKELETAL: No obvious deformities. Mild swelling of left lower extremity with compared to the right, but no pitting edema noted. Positive dorsalis pedal pulses. Negative Homans sign bilaterally. Mild tenderness over the posterior aspect of the left calf and left popliteal fossa. No lymphadenitis or lymphangitis noted. No evidence of superficial thrombophlebitis on exam. NEUROLOGICAL: Awake and alert. No obvious cranial nerve deficits. Motor grossly within normal limits. Normal speech. PSYCHIATRIC: Appropriate mood and affect; insight and judgment normal. Data Data Last Documented VS Vital Signs Date Time Temp Pulse Resp B/P (MAP) Pulse Ox O2 Delivery O2 Flow Rate FiO2 03/18/18 17:26 98.4 78 16 98/50 (66) 98 Orders Orders Us Leg Venous Doppler (03/18/18 ) Ed Discharge Order (03/18/18 22:08) [facility] Medical Decision Making Medical Screen Exam Complete: Yes Emergency Medical Condition: Yes Medical Record Reviewed: Yes Interpretation(s) Last Impressions Lower Extremity Ultrasound 03/18/18 0000 Signed Impressions: CONCLUSION: 1. No DVT identified. 2. Incidental note made of a 1.9 x 1.6 x 2.6 and meter Borja cyst within the l eft popliteal fossa. Differential Diagnosis Differential diagnosis includes DVT, Borja's cyst, lymphedema, thrombophlebitis , dependent edema. Narrative Course An ultrasound of the left lower extremity was ordered. Ultrasound is negative for DVT, does reveal Borja's cyst. Patient will be provided a copy of her ultrasound report at discharge. She is advised to follow-up with a primary physician. Return if symptoms worsen or progress. Diagnosis Primary Impression: Borja's cyst of knee Qualified Codes: M71.22 - Synovial cyst of popliteal space [Borja], left knee Patient Instructions: General Instructions Additional Instructions: Please provide the patient a copy of her ultrasound results at discharge. Follow-up with her primary physician. Ibuprofen and/or Advil as needed. Med/Other Pt SpecificInfo: No Change to Meds Disposition: 01 DISCHARGE HOME Condition: Stable Shukri Sanchez MD Mar 18, 2018 20:29
--- NOTE | 2018-03-18 21:47 | RADRPT ---
EXAM DATE: 03/18/2018 9:27 PM EDT AGE/SEX: 37 years / Female INDICATIONS: Left leg swelling. CLINICAL DATA: This is the patient's initial encounter. Patient reports that signs and symptoms have been present for 2 days and indicates a pain score of 1/10. MEDICAL/SURGICAL HISTORY: . Glasses. Deep vein thrombosis. Ovarian cysts. Depression. Tubal li gation. section. Dilation and curettage. Left oopherectomy. COMPARISON: No prior exams available for comparison. TECHNIQUE: Venous ultrasound of both lower extremities was performed from the inguinal ligament to t he proximal calf. Real-time, color Doppler and spectral tracing, compression and augmentation techni ques were used. FINDINGS: Normal compression of the deep venous system from the inguinal region to the proximal calf . No echogenic clot is seen. Normal response of the venous system to augmentation and respiration. CONCLUSION: 1. No DVT identified. 2. Incidental note made of a 1.9 x 1.6 x 2.6 and meter Borja cyst within the left popliteal fossa. Electronically signed by: Andrew Singer MD 03/18/2018 9:45 PM EDT
== END 2018-03-18 22:21 | disposition home or self-care (01) ==
LOC: NEPD 17:19
DX: M71.22 Synovial cyst of popliteal space [Baker], left knee (principal); M25.572 Pain in left ankle and joints of left foot; F32.9 Major depressive disorder, single episode, unspecified; F17.210 Nicotine dependence, cigarettes, uncomplicated; F12.90 Cannabis use, unspecified, uncomplicated; Z86.718 Personal history of other venous thrombosis and embolism
CPT/HCPCS: 93971; 99284